=== PATIENT | male | born 1960 | race American Indian/Alaskan Native ===

== ENCOUNTER 2021-05-07 00:20 | Emergency (ER) | payer SELFPAY ==
--- NOTE | 2021-05-07 00:59 | XRay Report ---
CHEST 1 VIEW INDICATION / CLINICAL INFORMATION: COUGH KARLOS. COMPARISON: None available. FINDINGS: SUPPORT DEVICES: None. HEART / MEDIASTINUM: No significant abnormality. LUNGS / PLEURA: No significant pulmonary or pleural abnormality. No pneumothorax. ADDITIONAL FINDINGS: No significant additional findings. IMPRESSION: 1. No acute findings. Signer Name: Karon Aguiar MD Signed: 05/07/2021 12:55 AM Workstation Name: [id number]
[2021-05-07] MEDS ORDERED: predniSONE 20 MG TAB PO ONE (05:32)
[2021-05-07] MEDS ORDERED: ONDANSETRON 4 MG ODT TAB PO ONE (05:32)
--- NOTE | 2021-05-07 05:37 | Emergency Department Report ---
- General Chief Complaint: Upper Respiratory Infection Stated Complaint: KARLOS AND COUGH Source: patient Mode of arrival: Ambulatory Limitations: No Limitations - History of Present Illness Initial Comments: Patient is a 60-year-old -Cypriot male with a history of hypertension who presented to the ED with complaint of acute onset persistent nasal and sinus congestion, sinus pressure, frontal sinus headache, persistent dry cough with intermittent wheezing for the last 1 week. Patient states that his tested positive for COVID-19 and he himself has had 3 tests for COVID-19 which were all negative. Patient states that in the last 2 days the persistent cough and frontal sinus pressure and body aches have worsened. Patient denies dizziness, syncope, chest pain, shortness of breath, nausea and vomiting, diarrhea, dysuria, urinary frequency and urgency, fever and chills or abdominal pain. MD Complaint: cough, rhinorrhea, nasal congestion, sinus pain -: Sudden, week(s) (1) Severity: severe Severity scale (0 -10): 8 Quality: sharp, aching Consistency: constant Worsens With: nothing Context: sick contacts Associated Symptoms: denies other symptoms, myalgias, headache, rhinorrhea, nasal congestion, cough. denies: diaphoresis, chest pain, abdominal pain, nausea, vomiting, dysuria, rash, confusion, weight loss, epistaxis, ear pain, other Treatments Prior to Arrival: "cold medicine" - Related Data Previous Rx's Medication Instructions Recorded Last Taken Type Azithromycin [Zithromax Z-SAKINA] 250 mg PO DAILY #6 tab 05/07/21 Unknown Rx Benzonatate [Tessalon Perles] 100 mg PO Q8HR #30 cap 05/07/21 Unknown Rx Cetirizine HCl [Zyrtec 10mg tab] 10 mg PO DAILY #30 tab 05/07/21 Unknown Rx Ibuprofen [Motrin] 600 mg PO Q8H PRN #30 tablet 05/07/21 Unknown Rx methylPREDNISolone [Medrol 4MG 4 mg PO DAILY #21 tab 05/07/21 Unknown Rx DOSEPAK (21 tabs)] Allergies Allergy/AdvReac Type Severity Reaction Status Date / Time No Known Allergies Allergy Unverified 05/07/21 00:25 ED Review of Systems ROS: Stated complaint: KARLOS AND COUGH Other details as noted in HPI Constitutional: denies: chills, fever Eyes: denies: eye pain, eye discharge, vision change ENT: congestion. denies: ear pain, throat pain Respiratory: cough. denies: shortness of breath, wheezing Cardiovascular: denies: chest pain, palpitations Endocrine: no symptoms reported Gastrointestinal: denies: abdominal pain, nausea, vomiting, diarrhea Genitourinary: denies: urgency, dysuria, frequency Musculoskeletal: back pain, arthralgia, myalgia. denies: joint swelling Skin: denies: rash, lesions Neurological: headache. denies: weakness, paresthesias Psychiatric: denies: anxiety, depression Hematological/Lymphatic: denies: easy bleeding, easy bruising ED Past Medical Hx - Past Medical History Previous Medical History?: No - Surgical History Past Surgical History?: No - Medications Home Medications: Home Medications Medication Instructions Recorded Confirmed Last Taken Type Azithromycin [Zithromax Z-SAKINA] 250 mg PO DAILY #6 tab 05/07/21 Unknown Rx Benzonatate [Tessalon Perles] 100 mg PO Q8HR #30 cap 05/07/21 Unknown Rx Cetirizine HCl [Zyrtec 10mg tab] 10 mg PO DAILY #30 tab 05/07/21 Unknown Rx Ibuprofen [Motrin] 600 mg PO Q8H PRN #30 tablet 05/07/21 Unknown Rx methylPREDNISolone [Medrol 4MG 4 mg PO DAILY #21 tab 05/07/21 Unknown Rx DOSEPAK (21 tabs)] ED Physical Exam - General Limitations: No Limitations General appearance: alert, in no apparent distress - Head Head exam: Present: atraumatic, normocephalic, normal inspection - Eye Eye exam: Present: normal appearance, PERRL, EOMI Pupils: Present: normal accommodation - ENT ENT exam: Present: normal orophraynx, mucous membranes moist, TM's normal bilaterally, normal external ear exam, other (Grossly congested nasal passages; palpable frontal sinus tenderness) - Neck Neck exam: Present: normal inspection, full ROM. Absent: tenderness - Respiratory Respiratory exam: Present: normal lung sounds bilaterally. Absent: respiratory distress, wheezes, rales, stridor, chest wall tenderness, accessory muscle use - Cardiovascular Cardiovascular Exam: Present: regular rate, normal rhythm, normal heart sounds. Absent: systolic murmur, diastolic murmur, rubs, gallop - GI/Abdominal GI/Abdominal exam: Present: soft, normal bowel sounds. Absent: tenderness, guarding, rebound, hyperactive bowel sounds, hypoactive bowel sounds, organomegaly, mass - Extremities Exam Extremities exam: Present: normal inspection, full ROM, normal capillary refill - Back Exam Back exam: Present: normal inspection, full ROM. Absent: tenderness, CVA tenderness (R), CVA tenderness (L), muscle spasm, paraspinal tenderness, vertebral tenderness - Neurological Exam Neurological exam: Present: alert, oriented X3, CN II-XII intact, normal gait, reflexes normal - Psychiatric Psychiatric exam: Present: normal affect, normal mood - Skin Skin exam: Present: warm, dry, intact, normal color. Absent: rash ED Course Vital Signs 05/07/21 00:22 Temperature 98.2 F Pulse Rate 99 H Respiratory 18 Rate Blood Pressure 155/96 O2 Sat by Pulse 96 Oximetry ED Medical Decision Making - Radiology Data Radiology results: report reviewed, image reviewed [address] [address] XRay Report Signed Patient: MILLICENT TYSON MR#: [id number] : 1960 Acct:[id number] Age/Sex: 60 / M ADM Date: 05/07/21 Loc: ED Attending Dr: Ordering Physician: ED MD JEROMY Date of Service: 05/07/21 Procedure(s): XR chest 1V ap Accession Number(s): [id number] cc: ED MD JEROMY Fluoro Time In Minutes: CHEST 1 VIEW INDICATION / CLINICAL INFORMATION: COUGH KARLOS. COMPARISON: None available. FINDINGS: SUPPORT DEVICES: None. HEART / MEDIASTINUM: No significant abnormality. LUNGS / PLEURA: No significant pulmonary or pleural abnormality. No pneumothorax. ADDITIONAL FINDINGS: No significant additional findings. IMPRESSION: 1. No acute findings. Signer Name: Karon Aguiar MD Signed: 05/07/2021 12:55 AM Workstation Name: [id number] Transcribed By: JR Dictated By: Karon Aguiar MD Electronically Authenticated By: Karon Aguiar MD Signed Date/Time: 05/07/2154 DD/ TD/TT: - Medical Decision Making This is a 60-year-old -Cypriot male with a history of hypertension who presented to the ED with complaint of acute onset persistent nasal and sinus congestion, sinus pressure, frontal sinus headache, persistent dry cough with intermittent wheezing for the last 1 week. Patient states that his tested positive for COVID-19 and he himself has had 3 tests for COVID-19 which were all negative. Patient states that in the last 2 days the persistent cough and frontal sinus pressure and body aches have worsened. In the ED, patient is alert and oriented x3 and is not in any distress. Patient is hemodynamically stable. Chest x-ray showed no acute cardiopulmonary abnormalities or pneumonitis. Patient was treated in the ED with oral steroids. Patient was th ereafter discharged home on medications and advised to follow-up with his primary care physician in 7 to 10 days for reevaluation or return to the ED immediately if symptoms get worse. - Differential Diagnosis Bronchitis; URI; Pneumonia; Sinusitis; Covid-19 Critical care attestation.: If time is entered above; I have spent that time in minutes in the direct care of this critically ill patient, excluding procedure time. ED Disposition Clinical Impression: Acute upper respiratory infection, Acute bacterial sinusitis Acute bronchitis Qualifiers: Bronchitis organism: other organism Qualified Code(s): J20.8 - Acute bronchitis due to other specified organisms Disposition: 01 HOME / SELF CARE / HOMELESS Is pt being admited?: No Does the pt Need Aspirin: No Condition: Stable Instructions: Acute Bronchitis (ED), Sinusitis, Adult, [id number], Upper Respiratory Infection, Adult, [id number], Acute Bronchitis, Adult, [id number] Additional Instructions: Take medication with food, drink plenty of fluids and follow-up with your primary care physician in 7 to 10 days for reevaluation. Return to the ED immediately if symptoms get worse. Prescriptions: methylPREDNISolone [Medrol 4MG DOSEPAK (21 tabs)] 4 mg PO DAILY #21 tab Ibuprofen [Motrin] 600 mg PO Q8H PRN #30 tablet PRN Reason: Pain Benzonatate [Tessalon Perles] 100 mg PO Q8HR #30 cap Azithromycin [Zithromax Z-SAKINA] 250 mg PO DAILY #6 tab Cetirizine HCl [Zyrtec 10mg tab] 10 mg PO DAILY #30 tab Referrals: [facility] [Provider Group] - 7-10 days Time of Disposition: 05:36 Print Language: MALTESE
[2021-05-07 06:29] VITALS: BP 148/90
== END 2021-05-07 06:26 | disposition home or self-care (01) ==
LOC: ED 00:20
DX: J20.9 Acute bronchitis, unspecified (principal); J01.90 Acute sinusitis, unspecified
CPT/HCPCS: 71045; 99283; J7512; J3490; Q0162